=== PATIENT | male | born 1950 | race Caucasian/White ===

== ENCOUNTER 2020-10-16 11:52 | Emergency (ER) | payer MEDICARE, OTHER, SELFPAY ==
[2020-10-16 12:36] VITALS: BP 127/82; PULSE 85; RESP 18; TEMP 36.8; O2SAT 95; BMI 26.4
[2020-10-16 12:43] VITALS: RESP 15
--- NOTE | 2020-10-16 13:09 | W.ED.WOUNDLC ---
HPI - Wound/Laceration General: Chief Complaint: Wound/Laceration Stated Complaint: Left foot, small toe open wound Time Seen by Provider: 10/16/20 12:52 Source: patient Mode of arrival: ambulatory Limitations: no limitations History of Present Illness: HPI narrative: 70-year-old male presents to the ER today with significant other for a wound on the left pinky toe that is chronic. Patient has appointment with wound care on Monday however when he woke up this a.m. there was a blue tent noted to the toe so family was concerned that there was not good circulation. Patient reports at this time the blue has resolved and now there is just redness. He has been on multiple antibiotics but is not currently taking one. The most effective medication in the past has been Levaquin. Patient denies any pain. This wound was a result of bunions and rubbing on his shoes. He has seen podiatry before and had surgeries on this. Patient denies any fever, chills, chest pain, shortness of breath, nausea, vomiting, diarrhea, constipation. Onset (ago): month(s) Extremity Location: Left: foot (pinky toe) Associated symptoms: Denies chills, fever(s), nausea or vomiting Review of Systems Const: Denies: fever(s), chills or body aches ENMT: Denies: throat pain, nasal discharge or nasal congestion Card: Denies: chest pain or palpitations Resp: Denies: dyspnea or wheezing GI: Denies: abdominal pain, nausea, vomiting, diarrhea or constipation Musc: Denies: extremity pain Skin/Breast: Reports: erythema and non-healing lesions; Denies: rash Neuro: Reports: numbness in extremities (chronic issue); Denies: headache(s) Psych: Denies: anxiety or depression Physical Exam Const: COMMON NORMALS: no acute distress and patient oriented x3 GENERAL APPEARANCE: cooperative and comfortable HENMT: COMMON NORMALS: normocephalic HEAD & SCALP: normocephalic Neck/C-Spine: COMMON NORMALS: no JVD Resp: COMMON NORMALS: normal respiratory effort, No retractions and clear to auscultation bilaterally EFFORT & INSPECTION: Yes able to speak in complete sentences AUSCULTATION: clear to auscultation bilaterally Cardio: COMMON NORMALS: no JVD, regular rate, regular rhythm and No murmurs present (Cardio) RATE: regular rate RHYTHM: regular rhythm GI: COMMON NORMALS: Normal to inspection, nondistended, normoactive bowel sounds present, Soft to palpation and non-tender PALPATION: Yes Soft to palpation Back/Pelvis: THORACIC SPINE/UPPER BACK: Yes thoracic ROM normal LUMBAR SPINE/LOWER BACK: Yes lumbar ROM normal Extremity: GENERAL: Yes normal exam except as noted (L pinky toe with chronic ulcer and surrounding erythema) Neuro: COMMON NORMALS: patient oriented x3 Psych: COMMON NORMALS: mental status grossly normal and Normal thought process present THOUGHT PROCESS: Normal thought process present Skin: COMMON NORMALS: negative for no wounds (Chronic wound on the left pinky toe with surrounding erythema) OTHER: The redness extends up the dorsal aspect of the foot from the pinky toe where there is noted to be a chronic ulcer. There is also mild to moderate swelling which is chronic. Course ED course: Wound examined in the ER, appears to be mildly infected so we will restart antibiotics at this time. Patient has appointment with wound care on Monday and should follow-up there. There is no blueness noted to the toe. Vital Signs: Vital signs: Vital Signs Temperature 98.2 F 10/16/20 12:36 Pulse Rate 82 10/16/20 13:32 Respiratory Rate 20 H 10/16/20 13:32 Blood Pressure 136/89 10/16/20 13:32 Pulse Oximetry 98 10/16/20 13:32 MDM - Wound/Laceration MDM Narrative: Medical decision making narrative: Patient has a chronic ulcer noted to the left pinky toe. There does appear to be some new redness according to the patient and spouse. We will restart patient on Levaquin as that has been the most effective in the past. Patient has an appointment with wound care on Monday. There appears to be good circulation in the toe at this time. Patient has no other symptoms at this time. Critical Care Time Critical Care Time: Critical Care Time: No Discharge Plan Discharge Patient Disposition: Home Clinical Impression: Ulcer of toe of left foot Qualifiers: Non-pressure ulcer stage: limited to breakdown of skin Qualified Code(s): L97.521 - Non-pressure chronic ulcer of other part of left foot limited to breakdown of skin Condition: Stable Prescriptions: New levofloxacin 750 mg tablet 750 mg PO DAILY 7 Days Qty: 7 RF: 0 Discharge Orders: Discharge ED (Routine); Ordered 10/16/20 Ordered By: Yvonne Sarmiento Referrals: Blayne Malloy MD [Primary Care Provider] - Discharge Diet: Usual diet Discharge Activity: Resume usual activity Patient Instructions: Pressure Ulcer (ED), Opioid Safety Activity Restrictions/Additional Instructions: Take Levaquin as prescribed. Continue home wound care as you have been. Follow-up with wound care on Monday as scheduled appointment. Return to the ER with any new or worsening symptoms. Coding Level of Care Code ED Home Restoration Service Supervisor for Chas Neil
[2020-10-16 13:32] VITALS: BP 136/89; PULSE 82; RESP 20; O2SAT 98
== END 2020-10-16 13:33 | disposition home or self-care (01) ==
PROVIDERS: Emergency Provider Physician Assistant; PCP Specialist
DX: L97.521 Non-pressure chronic ulcer of other part of left foot limited to breakdown of skin (principal)
CPT/HCPCS: 99281

== ENCOUNTER 2020-10-19 08:05 | Outpatient (CLI) | payer MEDICARE, OTHER, SELFPAY | END 2020-10-19 08:06 | disposition home or self-care (01) | LOC: WOUND 08:06 | PROVIDERS: PCP Specialist; Visit Provider Emergency Medicine | DX: E11.621 Type 2 diabetes mellitus with foot ulcer (principal); L97.522 Non-pressure chronic ulcer of other part of left foot with fat layer exposed; R60.0 Localized edema | CPT/HCPCS: 11042; 73630; 87070; 87077; 87176; 87186; 87205; G0463 ==

== ENCOUNTER 2020-10-19 09:38 | Outpatient (CLI) | payer MEDICARE, OTHER, SELFPAY ==
--- NOTE | 2020-10-19 | XR_ITS ---
WS: [id number] FOOT LEFT TECHNIQUE: 3 views of the left foot CLINICAL INFORMATION: TU[E 2 DM WITH ULCER COMPARISON: None. FINDINGS: Soft tissue edema overlying the fifth digit. Destructive changes at the fifth PIP joint with soft tis janelle calcification. Recommend correlation with area of ulceration. Findings suspicious for osteomyelit is in this area. Hammertoe deformities. Normal metatarsals. Achilles insertion enthesophytes. Dorsal hypertrophic spur ring along the navicular. XR/XR foot LT min 3V* [id number] IMPRESSION: 1. Soft tissue edema with destructive changes fifth PIP joint suspicious for o steomyelitis. Recommend correlation with area of ulceration.
== END 2020-10-19 09:39 | disposition home or self-care (01) ==
PROVIDERS: PCP Specialist; Visit Provider Emergency Medicine
DX: E11.621 Type 2 diabetes mellitus with foot ulcer (principal); R60.0 Localized edema
CPT/HCPCS: 73630

== ENCOUNTER 2020-10-26 08:11 | Outpatient (CLI) | payer MEDICARE, OTHER, SELFPAY | END 2020-10-26 08:12 | disposition home or self-care (01) | LOC: WOUND 08:12 | PROVIDERS: PCP Specialist; Visit Provider Emergency Medicine | DX: E11.621 Type 2 diabetes mellitus with foot ulcer (principal); L97.522 Non-pressure chronic ulcer of other part of left foot with fat layer exposed | CPT/HCPCS: 11042; 99212 ==

== ENCOUNTER 2020-11-02 08:23 | Outpatient (CLI) | payer MEDICARE, OTHER, SELFPAY ==
--- NOTE | 2020-11-02 08:29 | NM_ITS ---
WS: [id number] THREE-PHASE BONE SCAN HISTORY: ACUTE OSTEOMYELITIS LEFT FOOT COMPARISON: LEFT foot radiograph 10/19/2020 Patient is is injected with 24.6 mCi Tc99m HDP intravenously. Immediate angiographic phase imaging is performed over the area of concern. Static blood pool imaging also performed. Two-hour whole-body sc intigrams performed in anterior and posterior projections. Additional large field of view imaging sub mitted as necessary. 3 phase bone scan imaging centered over the feet. Three-phase increased uptake involving the LEFT fif th toe. Area of abnormality involves a large portion of the fifth toe. The exact location cannot be d etermined by bone scan imaging. This does correspond to the abnormality seen on the recent radiograph . There is additional increased uptake on the delayed imaging in the lateral LEFT ankle, LEFT knee, b ilateral shoulders and SC joints. Thoracolumbar scoliosis. Increased uptake at the first carpometacar pal joints bilaterally. Normal soft tissue uptake and renal uptake. NM/NM bone 3 phase 60073 IMPRESSION: 1. Osteomyelitis centered at the first toe of the LEFT foot. Corresponds to th e radiographic abnormalities. The exact location is difficult to determine by b one scan imaging but greater than 50% of the fifth toe is involved. 2. Additional osteoarthritic changes throughout the skeleton as above.
== END 2020-11-02 08:24 | disposition home or self-care (01) ==
LOC: NM 08:27
PROVIDERS: PCP Specialist; Visit Provider Emergency Medicine
DX: M86.172 Other acute osteomyelitis, left ankle and foot (principal); E11.621 Type 2 diabetes mellitus with foot ulcer; L97.521 Non-pressure chronic ulcer of other part of left foot limited to breakdown of skin
CPT/HCPCS: 78315; 97597; 99212; A9561

== ENCOUNTER 2020-11-02 13:05 | Outpatient (CLI) | payer MEDICARE, OTHER, SELFPAY | END 2020-11-02 13:06 | disposition home or self-care (01) | LOC: WOUND 13:06 | PROVIDERS: PCP Specialist; Visit Provider Emergency Medicine | DX: E11.621 Type 2 diabetes mellitus with foot ulcer (principal); L97.521 Non-pressure chronic ulcer of other part of left foot limited to breakdown of skin | CPT/HCPCS: 97597; 99212 ==

== ENCOUNTER → 2020-11-06 09:22 | Day surgery (SDC) | payer MEDICARE, OTHER, SELFPAY ==
--- NOTE | 2020-11-06 10:09 | SUR.PREOP ---
TIME OUT FOR PICC LINE INSERTION.
--- NOTE | 2020-11-06 10:10 | XR_ITS ---
WS: [id number] PORTABLE CHEST HISTORY: PICC LINE PLACEMENT COMPARISON: None available. Right-sided PICC line has been inserted with tip in the mid to distal SVC. No complications. Visualized lungs are clear. No pleural effusion or pneumothorax. Cardiac size: Normal. Mediastinum/Aorta: Mild atherosclerosis aorta. Severe degenerative changes at the RIGHT glenohumeral joint with prior ORIF. XR/XR chest 1V portable [id number] IMPRESSION: Satisfactory placement right-sided PICC line.
[2020-11-06] MEDS: vancomycin 1,250 MG/250 ML PIGGYBACK 200 MG IV (11:50)
[2020-11-06 11:55] VITALS: BP 117/72; PULSE 68; RESP 18; TEMP 36.6; O2SAT 97; BMI 25.9
[2020-11-06 12:30] LABS: Anion Gap 14.4 (5-19); Blood Urea Nitrogen 11 mg/dL (8-23); Calcium 8.8 mg/dL (8.5-10.5); Carbon Dioxide 28 mmol/L (22-29); Chloride 93 mmol/L (98-107); Glomerular Filtration Rate 112.1 mL/min (90-130); Glucose 97 mg/dL (65-115); Osmolality Calculated 273 mOsm/kg (285-295); Potassium 3.4 mmol/L (3.5-5.1); Sodium 132 mmol/L (136-145)
== END ==
LOC: CDL 09:42 → OPS 09:45
PROVIDERS: PCP Specialist; Visit Provider Emergency Medicine
DX: E11.621 Type 2 diabetes mellitus with foot ulcer (principal); M86.172 Other acute osteomyelitis, left ankle and foot
CPT/HCPCS: 36569; 36592; 71045; 80048; 96365; J3370

== ENCOUNTER 2020-11-09 09:39 | Outpatient (CLI) | payer MEDICARE, OTHER, SELFPAY | END 2020-11-09 09:40 | disposition home or self-care (01) | LOC: WOUND 09:41 | PROVIDERS: PCP Specialist; Visit Provider Emergency Medicine | DX: Z09 Encounter for follow-up examination after completed treatment for conditions other than malignant neoplasm (principal) | CPT/HCPCS: 99212 ==

== ENCOUNTER 2020-11-09 12:24 | Outpatient (CLI) | payer MEDICARE, OTHER, SELFPAY ==
--- NOTE | 2020-11-09 12:30 | USCV_ITS ---
Denilson Dejesus Age: 70 Gender: M : 1950 Exam Date: 11/09/2020 12:59 Ordering Phys: Laurence España DO Technologist: PAL Exam Location: [facility] [place] Indication: HISTORY: PROCEDURES: FINDINGS: No DVT or reflux is visualized within any vessel examined at this time. The veins were found to be easily compressible with spontaneous blood flow. Non pulsatile flow pattern. CONCLUSIONS No evidence of DVT in the above-mentioned identifiable veins. No significant venous reflux bilaterally. Normal caliber superficial veins bilaterally, less than 1 cm deep from the surface. Dr Jean Claude Sam MD [facility] (Electronically Signed) Final Date: 11 November 2020 23:20 S
== END 2020-11-09 12:25 | disposition home or self-care (01) ==
LOC: US 12:26
PROVIDERS: PCP Specialist; Visit Provider Emergency Medicine
DX: E11.621 Type 2 diabetes mellitus with foot ulcer (principal); Z09 Encounter for follow-up examination after completed treatment for conditions other than malignant neoplasm
CPT/HCPCS: 93970; 99212

== ENCOUNTER 2020-11-11 10:33 | Outpatient (CLI) | payer MEDICARE, OTHER, SELFPAY | END 2020-11-11 10:34 | disposition home or self-care (01) | PROVIDERS: PCP Specialist; Visit Provider Emergency Medicine | DX: E11.621 Type 2 diabetes mellitus with foot ulcer (principal); M86.172 Other acute osteomyelitis, left ankle and foot | CPT/HCPCS: 85025 ==

== ENCOUNTER 2020-11-12 08:58 | Outpatient (CLI) | payer MEDICARE, OTHER, SELFPAY ==
--- NOTE | 2020-11-12 09:11 | USCV_ITS ---
Denilson Dejessu Age: 70 Gender: M : 1950 Exam Date: 11/12/2020 09:43 Ordering Phys: Laurence España DO Technologist: LUI [place] [facility] [place]ication: TOE ULCER LT FOOT Risk Factors: Previous Vascular Surgery: RIGHT LEFT BP: 135.0 / 80.00 BP: 135.0/ 80.00 0 0 Waveform Velocity (cm/s) Velocity (cm/s) Waveform Triphasic 73.2 Iliac Prox 73.2 Triphasic Triphasic 68.4 Iliac Mid 67.0 Triphasic Triphasic 109.3 Iliac Distal 81.6 Triphasic Triphasic 102.5 MEDICAL CASE MANAGER 95.9 Biphasic Triphasic 85.4 SFA Prox 95.9 Triphasic Triphasic 80.3 SFA Mid 87.1 Triphasic Triphasic SFA Dist Triphasic 61.5 52.9 Triphasic 44.3 POP 45.8 Triphasic Triphasic 56.0 [employer] 77.7 Triphasic Triphasic 79.2 DPA 64.5 Triphasic 1.0 QUINTON 1.0 FINDINGS Minimal diffuse plaques iliac and femoral arteries bilaterally. Normal Doppler flow velocities. Normal ABIs bilaterally CONCLUSIONS 1. Mild diffuse plaques in the iliac and femoral arteries bilaterally. 2. Normal resting ABIs bilaterally 3. No significant arterial obstruction, based on the above findings Dr Jean Claude Sma MD [facility] (Electronically Signed) Final Date: 12 November 2020 20:19 S
== END 2020-11-12 08:59 | disposition home or self-care (01) ==
LOC: US 09:00
PROVIDERS: PCP Specialist; Visit Provider Emergency Medicine
DX: E11.621 Type 2 diabetes mellitus with foot ulcer (principal); I70.8 Atherosclerosis of other arteries
CPT/HCPCS: 93925

== ENCOUNTER 2020-11-30 09:53 | Outpatient (CLI) | payer MEDICARE, OTHER, SELFPAY | END 2020-11-30 09:54 | disposition home or self-care (01) | LOC: WOUND 09:55 | PROVIDERS: PCP Specialist; Visit Provider Nurse Practitioner Family | DX: E11.621 Type 2 diabetes mellitus with foot ulcer (principal); L97.529 Non-pressure chronic ulcer of other part of left foot with unspecified severity | CPT/HCPCS: 99212 ==

== ENCOUNTER 2020-12-21 10:13 | Outpatient (CLI) | payer MEDICARE, OTHER, SELFPAY | END 2020-12-21 10:14 | disposition home or self-care (01) | LOC: WOUND 10:14 | PROVIDERS: PCP Specialist; Visit Provider Emergency Medicine | DX: Z09 Encounter for follow-up examination after completed treatment for conditions other than malignant neoplasm (principal) | CPT/HCPCS: 99212 ==

== ENCOUNTER → 2021-07-15 10:02 | Outpatient (BNVA) | payer MEDICARE, OTHER, SELFPAY | PROVIDERS: PCP Specialist; Visit Provider Nurse Practitioner Family | DX: E11.621 Type 2 diabetes mellitus with foot ulcer (principal); L97.522 Non-pressure chronic ulcer of other part of left foot with fat layer exposed | CPT/HCPCS: 11042; 73630 ==

== ENCOUNTER 2021-07-15 12:10 | Outpatient (CLI) | payer MEDICARE, OTHER, SELFPAY | END 2021-07-15 12:11 | disposition home or self-care (01) | PROVIDERS: PCP Specialist; Visit Provider Nurse Practitioner Family | DX: E11.621 Type 2 diabetes mellitus with foot ulcer (principal); L97.509 Non-pressure chronic ulcer of other part of unspecified foot with unspecified severity | CPT/HCPCS: 11042 ==

== ENCOUNTER → 2021-07-22 10:08 | Outpatient (BNVA) | payer MEDICARE, OTHER, SELFPAY | PROVIDERS: PCP Specialist; Visit Provider Nurse Practitioner Family | DX: E11.621 Type 2 diabetes mellitus with foot ulcer (principal); L97.522 Non-pressure chronic ulcer of other part of left foot with fat layer exposed; I96 Gangrene, not elsewhere classified | CPT/HCPCS: 11042 ==

== ENCOUNTER → 2021-07-29 09:11 | Outpatient (BNVA) | payer MEDICARE, OTHER, SELFPAY | PROVIDERS: PCP Specialist; Visit Provider Nurse Practitioner Family | DX: Z09 Encounter for follow-up examination after completed treatment for conditions other than malignant neoplasm (principal) | CPT/HCPCS: 99212 ==

== ENCOUNTER → 2021-07-30 14:04 | Outpatient (BNVA) | payer MEDICARE, OTHER, SELFPAY | PROVIDERS: PCP Specialist; Visit Provider Podiatrist Foot & Ankle Surgery | DX: E11.621 Type 2 diabetes mellitus with foot ulcer (principal); L97.529 Non-pressure chronic ulcer of other part of left foot with unspecified severity; E11.42 Type 2 diabetes mellitus with diabetic polyneuropathy; M20.41 Other hammer toe(s) (acquired), right foot; M20.42 Other hammer toe(s) (acquired), left foot | CPT/HCPCS: 11055; 11721; 99204 ==

== ENCOUNTER → 2021-08-19 10:25 | Outpatient (BNVA) | payer MEDICARE, OTHER, SELFPAY | PROVIDERS: PCP Specialist; Visit Provider Podiatrist Foot & Ankle Surgery | DX: M20.42 Other hammer toe(s) (acquired), left foot (principal); E11.621 Type 2 diabetes mellitus with foot ulcer; L97.529 Non-pressure chronic ulcer of other part of left foot with unspecified severity; E11.42 Type 2 diabetes mellitus with diabetic polyneuropathy; Z79.84 Long term (current) use of oral hypoglycemic drugs | CPT/HCPCS: 28011 ==

== ENCOUNTER → 2021-08-27 09:50 | Outpatient (BNVA) | payer MEDICARE, OTHER, SELFPAY | PROVIDERS: PCP Specialist; Visit Provider Podiatrist Foot & Ankle Surgery | DX: Z98.890 Other specified postprocedural states (principal) | CPT/HCPCS: 99024 ==

== ENCOUNTER → 2023-03-21 15:05 | Outpatient (BNVA) | payer MEDICARE, OTHER, SELFPAY | PROVIDERS: PCP Specialist; Visit Provider Podiatrist Foot & Ankle Surgery | DX: E11.42 Type 2 diabetes mellitus with diabetic polyneuropathy; M20.42 Other hammer toe(s) (acquired), left foot; Z79.84 Long term (current) use of oral hypoglycemic drugs | CPT/HCPCS: 28010 ==